=== PATIENT | male | born 1995 | race Two or more races ===

== ENCOUNTER 2020-07-03 07:14 | Emergency (ER) | payer OTHER ==
[~2020-07-03] VITALS: Ht 172.7 cm; Wt 81.6 kg
[2020-07-03 07:29] VITALS: BP 126/82
[2020-07-03] MEDS ORDERED: KETOROLAC TROMETH 60MG/2ML VIAL IM ONE (08:15)
== END 2020-07-03 08:35 | disposition left against medical advice (07) ==
LOC: ER 07:14
DX: S39.012A Strain of muscle, fascia and tendon of lower back, initial encounter (principal); S06.9X9A Unspecified intracranial injury with loss of consciousness of unspecified duration, initial encounter; V43.52XA Car driver injured in collision with other type car in traffic accident, initial encounter; Y93.89 Activity, other specified; Y92.488 Other paved roadways as the place of occurrence of the external cause; Y99.9 Unspecified external cause status
CPT/HCPCS: J1885